=== PATIENT | male | born 1985 | race Caucasian/White ===

== ENCOUNTER 2023-08-25 18:17 | Emergency (ER) | payer OTHER ==
[~2023-08-25] VITALS: Ht 180.3 cm; Wt 70.5 kg
[2023-08-25 19:00] LABS: BASO # 0.1 10^3/uL (0.0-0.2); BASO % 1.1 % (0.0-1.0); EOS # 0.5 10^3/uL (0.0-0.5); HEMATOCRIT 39.3 % (42.0-52.0); HEMOGLOBIN 13.6 g/dl (13.5-17.5); LYMPH # 2.7 10^3/uL (1.5-5.0); LYMPH % 32.9 % (24.0-44.0); MEAN CORPUSCULAR HEMOGLOBIN 31.6 pg (27.0-33.0); MEAN CORPUSCULAR HGB CONC 34.6 g/dl (32.0-36.5); MEAN CORPUSCULAR VOLUME 91.4 fl (80.0-96.0); MONO # 0.8 10^3/uL (0.0-0.8); MONO % 9.1 % (2.0-8.0); NEUTROPHILS # 4.2 10^3/uL (1.5-8.5); NEUTROPHILS % 50.8 % (36.0-66.0); PLATELET COUNT, AUTOMATED 318 10^3/uL (150-450); WHITE BLOOD COUNT 8.3 10^3/uL (4.0-10.0)
[2023-08-25] MEDS ORDERED: Albuterol INH (19:15)
[2023-08-25 19:19] LABS: CK-MB VALUE MASS < 1.0 NG/ML (<3.6); LIPASE 49 U/L (12-53)
[2023-08-25 19:22] LABS: ALBUMIN 3.4 G/DL (3.2-5.2); ALKALINE PHOSPHATASE 63 U/L (46-116); ALT/SGPT 53 U/L (7.0-40); AST/SGOT 30 U/L (<34); BILIRUBIN,DIRECT < 0.1 MG/DL (<0.4); BILIRUBIN,TOTAL 0.3 MG/DL (0.3-1.2); BLOOD UREA NITROGEN 11 MG/DL (9-23); CALCIUM LEVEL 8.8 MG/DL (8.5-10.1); CARBON DIOXIDE LEVEL 27 MMOL/L (20-31); CHLORIDE LEVEL 108 MMOL/L (98-107); CPK CREATINE PHOSPHOKINASE 98 U/L (46-171); CREATININE FOR GFR 0.73 MG/DL (0.70-1.30); GLOMERULAR FILTRATION RATE > 60.0 (>60); GLUCOSE, FASTING 100 MG/DL (60-100); MB/CK RELATIVE INDEX 1.02 (< OR =4); POTASSIUM SERUM 3.8 MMOL/L (3.5-5.1); SODIUM LEVEL 143 MMOL/L (136-145); TOTAL PROTEIN 6.2 G/DL (5.7-8.2)
[2023-08-25 19:33] VITALS: TEMP 97.3
[2023-08-25 20:01] LABS: RSV AMPLIFICATION NEGATIVE (NEGATIVE)
[2023-08-25 21:18] LABS: CK-MB VALUE MASS 1.3 NG/ML (<3.6)
[2023-08-25 21:20] LABS: MB/CK RELATIVE INDEX 1.47 (< OR =4)
[2023-08-25 22:00] VITALS: BP 130/68
[2023-08-25 22:02] VITALS: O2SAT 98
== END 2023-08-25 22:34 | disposition home or self-care (01) ==
LOC: M ED 18:17
DX: R07.9 Chest pain, unspecified (principal); J45.909 Unspecified asthma, uncomplicated; F17.200 Nicotine dependence, unspecified, uncomplicated; Z79.52 Long term (current) use of systemic steroids; Z79.1 Long term (current) use of non-steroidal anti-inflammatories (NSAID); Z79.899 Other long term (current) drug therapy

== ENCOUNTER 2023-10-31 01:20 | Emergency (ER) | payer OTHER ==
[~2023-10-31] VITALS: Ht 195.6 cm; Wt 72.0 kg
[~2023-10-31 01:20] MED LIST: Albuterol INH
[2023-10-31 04:48] VITALS: BP 130/79; TEMP 97.8; O2SAT 100
[2023-10-31] MEDS ORDERED: LIDOCAINE 1% SDV 30ML VIAL SC SCH (07:45)
[2023-10-31] MEDS ORDERED: LIDOCAINE 1% MDV 20ML VIAL SC ONE (08:00)
[2023-10-31] MEDS ORDERED: NEOSPORIN OINT 0.9 GM PKT TOP ONE (09:00)
== END 2023-10-31 09:01 | disposition home or self-care (01) ==
LOC: M ED 01:20
DX: S61.511A Laceration without foreign body of right wrist, initial encounter (principal); W26.0XXA Contact with knife, initial encounter; Y92.009 Unspecified place in unspecified non-institutional (private) residence as the place of occurrence of the external cause; Y93.9 Activity, unspecified; Y99.9 Unspecified external cause status; F17.200 Nicotine dependence, unspecified, uncomplicated; Z88.6 Allergy status to analgesic agent; Z88.5 Allergy status to narcotic agent

== ENCOUNTER 2024-02-22 20:39 | Emergency (ER) | payer OTHER ==
[~2024-02-22] VITALS: Ht 167.6 cm; Wt 70.7 kg
[2024-02-22] MEDS: LIDOCAINE 1% MDV 20ML VIAL SC ONE (22:40)
[2024-02-22] MEDS ORDERED: CEPH500C PO (23:00)
[2024-02-22 23:08] VITALS: BP 124/73; TEMP 98; O2SAT 100
== END 2024-02-22 23:09 | disposition home or self-care (01) ==
LOC: M ED 20:39
DX: S61.210A Laceration without foreign body of right index finger without damage to nail, initial encounter (principal); W26.8XXA Contact with other sharp object(s), not elsewhere classified, initial encounter; Y92.009 Unspecified place in unspecified non-institutional (private) residence as the place of occurrence of the external cause; Y93.G1 Activity, food preparation and clean up; Y99.9 Unspecified external cause status; Z88.5 Allergy status to narcotic agent; Z88.6 Allergy status to analgesic agent; Z79.2 Long term (current) use of antibiotics; Z79.52 Long term (current) use of systemic steroids

== ENCOUNTER → 2024-07-13 | Outpatient (CLI) | payer OTHER ==
[~2024-07-13] MED LIST changes: +CEPH500C PO
== END ==
LOC: M RAD 13:11
PROVIDERS: ATTEND Physician Assistant Medical
DX: R05.9 Cough, unspecified (principal); R06.02 Shortness of breath

== ENCOUNTER 2024-08-04 01:45 | Emergency (ER) | payer MEDICAID, OTHER, SELFPAY ==
[~2024-08-04] VITALS: Ht 182.9 cm; Wt 66.2 kg
[2024-08-04 02:33] LABS: BASO # 0.1 10^3/uL (0.0-0.2); EOS # 0.5 10^3/uL (0.0-0.5); HEMATOCRIT 42.8 % (42.0-52.0); HEMOGLOBIN 14.7 g/dl (13.5-17.5); LYMPH # 1.9 10^3/uL (1.5-5.0); LYMPH % 18.6 % (24.0-44.0); MEAN CORPUSCULAR HGB CONC 34.3 g/dl (32.0-36.5); MONO # 0.7 10^3/uL (0.0-0.8); MONO % 6.2 % (2.0-8.0); NEUTROPHILS # 7.2 10^3/uL (1.5-8.5); PLATELET COUNT, AUTOMATED 256 10^3/uL (150-450); WHITE BLOOD COUNT 10.5 10^3/uL (4.0-10.0)
[2024-08-04 03:21] LABS: BLOOD UREA NITROGEN 16 MG/DL (9-23); CALCIUM LEVEL 8.8 MG/DL (8.5-10.1); CARBON DIOXIDE LEVEL 27 MMOL/L (20-31); CHLORIDE LEVEL 107 MMOL/L (98-107); CREATININE FOR GFR 0.89 MG/DL (0.70-1.30); GLOMERULAR FILTRATION RATE > 60.0 (>60); GLUCOSE, FASTING 182 MG/DL (60-100); MAGNESIUM LEVEL 2.2 MG/DL (1.8-2.4); POTASSIUM SERUM 3.4 MMOL/L (3.5-5.1); SODIUM LEVEL 139 MMOL/L (136-145)
[2024-08-04] MEDS: NS 1,000 ML IV ONE (06:33)
[2024-08-04] MEDS: ONDANSETRON 4MG 2ML VIAL IV ONE (06:34)
[2024-08-04] MEDS: NALOXONE 2MG/2ML SYRINGE IV STA (08:27)
[2024-08-04 09:48] LABS: BARBITURATES URINE NEGATIVE (NEGATIVE); BENZODIAZEPINES URINE NEGATIVE (NEGATIVE); CANNABINOIDS URINE NEGATIVE (NEGATIVE); METHADONE URINE NEGATIVE (NEGATIVE); OPIATES URINE NEGATIVE (NEGATIVE); PHENCYCLIDINE URINE NEGATIVE (NEGATIVE)
[2024-08-04 09:57] LABS: AMPHETAMINES LEVEL URINE POSITIVE (NEGATIVE); COCAINE METABOLITE URINE POSITIVE (NEGATIVE)
[2024-08-04] MEDS ORDERED: HOME MED LIST COMPLETE! XX SCH (10:35)
[2024-08-04 12:24] VITALS: BP 104/75; TEMP 96.4; O2SAT 98
== END 2024-08-04 12:47 | disposition home or self-care (01) ==
LOC: M ED 01:45
DX: F19.10 Other psychoactive substance abuse, uncomplicated (principal); Z88.5 Allergy status to narcotic agent; Z88.6 Allergy status to analgesic agent
CPT/HCPCS: 80048; 80307; 83735; 85025; 96361; 96374; 96375; 99285; J2310; J2405

== ENCOUNTER 2024-09-24 16:56 | Emergency (ER) | payer MEDICAID ==
[~2024-09-24] VITALS: Ht 182.9 cm; Wt 78.1 kg
[2024-09-24] MEDS ORDERED: BOOSTRIX VACCINE (TETANUS/DIPHTH/ACEL. PERTUSSIS) 0.5ML SYR IM.IMMUN ONE (17:15)
[2024-09-24] MEDS: MORPHINE 4 MG/ML 1ML VIAL IV PRN (17:18)
[2024-09-24] MEDS: ceFAZolin SOD 2 GM in IV 1 EA IV ONE (17:32)
[2024-09-24] MEDS: LIDOCAINE 2% MDV 20ML VIAL SC ONE (18:33)
[2024-09-24] MEDS ORDERED: PERC5TAB12 PO (19:28)
[2024-09-24] MEDS ORDERED: CEPH500C PO (19:28)
[2024-09-24 19:30] VITALS: BP 116/64
[2024-09-24 19:31] VITALS: O2SAT 97
[2024-09-24 19:39] VITALS: TEMP 97.3
[2024-09-24] MEDS: OXYCODONE/APAP 5MG/325MG(HOME DOSE PACK) PO ONE (19:43)
== END 2024-09-24 19:49 | disposition home or self-care (01) ==
LOC: M ED 16:56
DX: S61.212A Laceration without foreign body of right middle finger without damage to nail, initial encounter (principal); S62.632B Displaced fracture of distal phalanx of right middle finger, initial encounter for open fracture; W29.3XXA Contact with powered garden and outdoor hand tools and machinery, initial encounter; J45.909 Unspecified asthma, uncomplicated; Z88.6 Allergy status to analgesic agent; Z88.8 Allergy status to other drugs, medicaments and biological substances; Z79.2 Long term (current) use of antibiotics; Z79.899 Other long term (current) drug therapy; Y92.009 Unspecified place in unspecified non-institutional (private) residence as the place of occurrence of the external cause; Y93.89 Activity, other specified; Y99.9 Unspecified external cause status
CPT/HCPCS: 12032; 73130; 96374; 96375; 96376; 99284; J0690

== ENCOUNTER 2025-05-21 01:28 | Emergency (ER) | payer OTHER ==
[~2025-05-21] VITALS: Ht 182.9 cm; Wt 78.0 kg
[~2025-05-21 01:28] MED LIST changes: +PERC5TAB12 PO
[2025-05-21 02:09] LABS: PLATELET COUNT, AUTOMATED 294 10^3/uL (150-450)
[2025-05-21 02:36] LABS: ETHYL ALCOHOL (ETHANOL) 0.007 % (0.000-0.010)
[2025-05-21 02:38] LABS: ALT/SGPT 20 U/L (7.0-40); AST/SGOT 23 U/L (<34); CALCIUM LEVEL 8.9 MG/DL (8.5-10.1); CARBON DIOXIDE LEVEL 23 MMOL/L (20-31); CHLORIDE LEVEL 103 MMOL/L (98-107); CREATININE FOR GFR 0.93 MG/DL (0.70-1.30); GLOMERULAR FILTRATION RATE > 90.0 (>60); POTASSIUM SERUM 4.0 MMOL/L (3.5-5.1); SALICYLATE LEVEL < 3.0 MG/DL (<30); SODIUM LEVEL 138 MMOL/L (136-145)
[2025-05-21 03:19] LABS: METHADONE URINE NEGATIVE (NEGATIVE)
[2025-05-21 03:20] LABS: BARBITURATES URINE NEGATIVE (NEGATIVE); BENZODIAZEPINES URINE NEGATIVE (NEGATIVE); OPIATES URINE NEGATIVE (NEGATIVE); PHENCYCLIDINE URINE NEGATIVE (NEGATIVE)
[2025-05-21 03:22] LABS: AMPHETAMINES LEVEL URINE POSITIVE (NEGATIVE); CANNABINOIDS URINE POSITIVE (NEGATIVE); COCAINE METABOLITE URINE POSITIVE (NEGATIVE)
[2025-05-21] MEDS ORDERED: ALBU8.5H INH (05:43)
[2025-05-21] MEDS ORDERED: HOME MED LIST COMPLETE! XX SCH (05:45)
[2025-05-21] MEDS ORDERED: OVERDOSE RESCUE KIT XX SCH (11:15)
[2025-05-21 11:23] VITALS: BP 126/66; TEMP 97.9; O2SAT 99
== END 2025-05-21 11:39 | disposition home or self-care (01) ==
LOC: M ED 01:28
DX: F19.14 Other psychoactive substance abuse with psychoactive substance-induced mood disorder (principal); F32.A Depression, unspecified; Z88.6 Allergy status to analgesic agent; Z88.5 Allergy status to narcotic agent; Z79.52 Long term (current) use of systemic steroids

== ENCOUNTER 2025-08-27 07:28 | Emergency (ER) | payer OTHER, SELFPAY ==
[~2025-08-27] VITALS: Ht 182.9 cm; Wt 79.7 kg
[~2025-08-27 07:28] MED LIST changes: +ALBU8.5H INH
[2025-08-27 09:25] LABS: BASO # 0.1 10^3/uL (0.0-0.2); BASO % 0.8 % (0.0-1.0); EOS # 0.4 10^3/uL (0.0-0.5); EOS % 2.1 % (0.0-3.0); LYMPH # 2.0 10^3/uL (1.5-5.0); LYMPH % 10.5 % (24.0-44.0); MONO # 1.0 10^3/uL (0.0-0.8); MONO % 5.3 % (2.0-8.0); NEUTROPHILS # 15.1 10^3/uL (1.5-8.5); NEUTROPHILS % 80.9 % (36.0-66.0); PLATELET COUNT, AUTOMATED 394 10^3/uL (150-450)
[2025-08-27] MEDS: KETOROLAC 30 MG/ML 1 ML VIAL IV ONE (09:30)
[2025-08-27] MEDS: cefTRIAXone SOD 1 GM in DEXTROSE 5% (D5W) ADV/MINI-BAG 50 ML IV ONE (09:31)
[2025-08-27 09:48] LABS: ALT/SGPT 21 U/L (7.0-40); AST/SGOT 26 U/L (<34); C REACTIVE PROTEIN QUANTITATIV 1.73 MG/DL (<1.0); CALCIUM LEVEL 9.4 MG/DL (8.5-10.1); CARBON DIOXIDE LEVEL 25 MMOL/L (20-31); CHLORIDE LEVEL 105 MMOL/L (98-107); CREATININE FOR GFR 0.80 MG/DL (0.70-1.30); GLOMERULAR FILTRATION RATE > 90.0 (>60); POTASSIUM SERUM 4.1 MMOL/L (3.5-5.1); SODIUM LEVEL 142 MMOL/L (136-145)
[2025-08-27] MEDS: NS (Normal Saline) 0.9% 2,390 ML in IV 1 EA IV STA (10:10)
[2025-08-27] MEDS: VANCOMYCIN HCL 1,500 MG, VIAL MATE ADAPTER 1 EACH in NS 500 ML IV ONE (10:22)
[2025-08-27] MEDS ORDERED: HOME MED LIST COMPLETE! XX SCH (10:45)
[2025-08-27] MEDS: LIDOCAINE 1% MDV 20 ML VIAL SC ONE (11:45)
[2025-08-27] MEDS ORDERED: BACT800T5 PO (13:08)
[2025-08-27] MEDS ORDERED: IBUP80TA PO (13:44)
[2025-08-27 14:07] VITALS: BP 126/67; TEMP 98.2; O2SAT 99
[2025-08-29] MEDS ORDERED: DOXY-442 PO (07:13)
== END 2025-08-27 14:10 | disposition home or self-care (01) ==
LOC: M ED 07:28
DX: L03.114 Cellulitis of left upper limb (principal); L02.512 Cutaneous abscess of left hand; J45.909 Unspecified asthma, uncomplicated; F17.200 Nicotine dependence, unspecified, uncomplicated; Z79.52 Long term (current) use of systemic steroids; Z79.2 Long term (current) use of antibiotics; Z79.899 Other long term (current) drug therapy
CPT/HCPCS: 73130; 80053; 83605; 85025; 85652; 86140; 87040; 87070; 87075; 87077; 87186; 87205; 96365; 96366; 96375; 99284; J0665; J0696; J1885; J3374

== ENCOUNTER 2025-09-02 23:24 | Inpatient (IN) | payer OTHER ==
[~2025-09-02] VITALS: Ht 182.9 cm; Wt 87.8 kg
[~2025-09-02 23:24] MED LIST changes: +BACT800T5 PO; +DOXY-442 PO; +IBUP80TA PO
[2025-09-03 07:42] LABS: BASO # 0.1 10^3/uL (0.0-0.2); BASO % 0.8 % (0.0-1.0); EOS # 0.3 10^3/uL (0.0-0.5); EOS % 2.3 % (0.0-3.0); LYMPH # 2.1 10^3/uL (1.5-5.0); LYMPH % 17.2 % (24.0-44.0); MONO # 1.1 10^3/uL (0.0-0.8); MONO % 9.4 % (2.0-8.0); NEUTROPHILS # 8.4 10^3/uL (1.5-8.5); NEUTROPHILS % 69.5 % (36.0-66.0); PLATELET COUNT, AUTOMATED 409 10^3/uL (150-450)
[2025-09-03] MEDS: KETOROLAC 30 MG/ML 1 ML VIAL IV ONE (07:48)
[2025-09-03] MEDS: NS (Normal Saline) 0.9% 1,000 ML IV ONE (07:48)
[2025-09-03] MEDS: cefTRIAXone SOD 1 GM in DEXTROSE 5% (D5W) ADV/MINI-BAG 50 ML IV ONE (07:49)
[2025-09-03 08:10] LABS: CK-MB VALUE MASS 1.0 NG/ML (<3.6)
[2025-09-03 08:12] LABS: C REACTIVE PROTEIN QUANTITATIV 7.30 MG/DL (<1.0); CPK CREATINE PHOSPHOKINASE 69 U/L (46-171); MB/CK RELATIVE INDEX 1.44 (< OR =4)
[2025-09-03 08:13] LABS: ALT/SGPT 30 U/L (7.0-40); AST/SGOT 25 U/L (<34); CALCIUM LEVEL 9.5 MG/DL (8.5-10.1); CARBON DIOXIDE LEVEL 30 MMOL/L (20-31); CHLORIDE LEVEL 101 MMOL/L (98-107); CREATININE FOR GFR 0.76 MG/DL (0.70-1.30); GLOMERULAR FILTRATION RATE > 90.0 (>60); POTASSIUM SERUM 4.0 MMOL/L (3.5-5.1); SODIUM LEVEL 143 MMOL/L (136-145)
[2025-09-03] MEDS: VANCOMYCIN HCL 1,750 MG, VIAL MATE ADAPTER 1 EACH in NS 500 ML IV ONE (08:17)
[2025-09-03] MEDS ORDERED: HOME MED LIST COMPLETE! XX SCH (11:00)
[2025-09-03 11:10] LABS: BARBITURATES URINE NEGATIVE (NEGATIVE); BENZODIAZEPINES URINE NEGATIVE (NEGATIVE); CANNABINOIDS URINE NEGATIVE (NEGATIVE); METHADONE URINE NEGATIVE (NEGATIVE); OPIATES URINE NEGATIVE (NEGATIVE); PHENCYCLIDINE URINE NEGATIVE (NEGATIVE)
[2025-09-03 11:12] LABS: AMPHETAMINES LEVEL URINE POSITIVE (NEGATIVE); COCAINE METABOLITE URINE POSITIVE (NEGATIVE)
[2025-09-03 11:21] LABS: KETONE, URINE AUTO RFX NEGATIVE (NEGATIVE); LEUKOCYTE ESTERASE UR AUTO RFX NEGATIVE (NEGATIVE); MUCUS, URINE RFX SMALL (NEGATIVE); NITRITE, URINE AUTO RFX NEGATIVE (NEGATIVE); RBC, URINE AUTO RFX 1 /HPF (0-3); SQUAM EPITHELIAL CELL UR AURFX 0 /HPF (0-6); WBC, URINE AUTO RFX 3 /HPF (0-3)
[2025-09-03] MEDS ORDERED: KETOROLAC 30 MG/ML 1 ML VIAL IV PRN (12:45)
[2025-09-03] MEDS ORDERED: ACETAMINOPHEN 325 MG TAB PO PRN (12:45)
[2025-09-03] MEDS ORDERED: VANCOMYCIN HCL 1,000 MG in IV FLUID PLACE HOLDER 1 EA IV SCH (12:50)
[2025-09-03 14:29] VITALS: BP 123/74; TEMP 98.8; O2SAT 98
[2025-09-03] MEDS: VANCOMYCIN HCL 1,000 MG, VIAL MATE ADAPTER 1 EACH in NS 250 ML IV SCH (15:15)
[2025-09-03] MEDS: IBUPROFEN 800 MG TAB PO PRN (16:00)
[2025-09-03 20:11] VITALS: BP 135/70; TEMP 98; O2SAT 98
[2025-09-03] MEDS: DOCUSATE SODIUM 100 MG CAPSULE PO SCH (21:00)
[2025-09-03] MEDS: KETOROLAC 30 MG/ML 1 ML VIAL IV PRN (22:47)
[2025-09-04 06:40] LABS: BASO # 0.1 10^3/uL (0.0-0.2); BASO % 1.0 % (0.0-1.0); EOS # 0.4 10^3/uL (0.0-0.5); EOS % 4.0 % (0.0-3.0); LYMPH # 2.2 10^3/uL (1.5-5.0); LYMPH % 21.0 % (24.0-44.0); MONO # 0.9 10^3/uL (0.0-0.8); MONO % 9.2 % (2.0-8.0); NEUTROPHILS # 6.5 10^3/uL (1.5-8.5); NEUTROPHILS % 63.6 % (36.0-66.0); PLATELET COUNT, AUTOMATED 413 10^3/uL (150-450)
[2025-09-04 06:47] VITALS: BP 124/74; TEMP 98.6; O2SAT 97
[2025-09-04 07:03] LABS: CALCIUM LEVEL 8.5 MG/DL (8.5-10.1); CARBON DIOXIDE LEVEL 29 MMOL/L (20-31); CHLORIDE LEVEL 106 MMOL/L (98-107); CREATININE FOR GFR 0.98 MG/DL (0.70-1.30); GLOMERULAR FILTRATION RATE > 90.0 (>60); POTASSIUM SERUM 4.8 MMOL/L (3.5-5.1); SODIUM LEVEL 145 MMOL/L (136-145)
[2025-09-04] MEDS: cefTRIAXone SOD 1 GM in DEXTROSE 5% (D5W) ADV/MINI-BAG 50 ML IV SCH (09:58)
[2025-09-04] MEDS: ENOXAPARIN 40 MG/0.4 ML SYRINGE (J1650 PER 10MG) SC SCH (10:01)
[2025-09-04 10:30] VITALS: BP 130/62; TEMP 98.2; O2SAT 97
[2025-09-04] MEDS ORDERED: ALBUTEROL 90 MCG/ACT 8 GM HFA INHALER INH PRN (11:10)
[2025-09-04] MEDS ORDERED: GI COCKTAIL 50 ML BTL(HYOSCYAMINE/MAALOX/LIDOCAINE VISCOUS)(1:3:1) PO ONE (11:10)
[2025-09-04] MEDS: PANTOPRAZOLE 40MG VIAL IV ONE (11:30)
[2025-09-04] MEDS: ALBUTEROL SULFATE 2.5 MG/0.5 ML INH CONCENTRATE NEB SOLN NEB ONE (11:35)
[2025-09-04 14:40] VITALS: BP 137/83; TEMP 98.1; O2SAT 100
[2025-09-04 19:56] VITALS: BP 133/77; TEMP 98.6; O2SAT 100
[2025-09-04] MEDS: FAMOTIDINE 20 MG TAB PO SCH (21:00)
[2025-09-05 04:59] VITALS: BP 131/82; TEMP 99; O2SAT 100
[2025-09-05 06:41] LABS: BASO # 0.1 10^3/uL (0.0-0.2); BASO % 0.9 % (0.0-1.0); EOS # 0.4 10^3/uL (0.0-0.5); EOS % 2.9 % (0.0-3.0); LYMPH # 2.3 10^3/uL (1.5-5.0); LYMPH % 19.5 % (24.0-44.0); MONO # 0.8 10^3/uL (0.0-0.8); MONO % 6.9 % (2.0-8.0); NEUTROPHILS # 8.2 10^3/uL (1.5-8.5); NEUTROPHILS % 68.4 % (36.0-66.0); PLATELET COUNT, AUTOMATED 420 10^3/uL (150-450)
[2025-09-05 07:00] LABS: CALCIUM LEVEL 8.4 MG/DL (8.5-10.1); CARBON DIOXIDE LEVEL 29 MMOL/L (20-31); CHLORIDE LEVEL 103 MMOL/L (98-107); CREATININE FOR GFR 0.73 MG/DL (0.70-1.30); GLOMERULAR FILTRATION RATE > 90.0 (>60); POTASSIUM SERUM 4.4 MMOL/L (3.5-5.1); SODIUM LEVEL 140 MMOL/L (136-145)
[2025-09-05] MEDS: VANCOMYCIN HCL 1,250 MG, VIAL MATE ADAPTER 1 EACH in NS 250 ML IV SCH (08:56)
[2025-09-05] MEDS ORDERED: DOXY100C3 PO (11:01)
[2025-09-05] MEDS ORDERED: CEFD300CAP PO (11:01)
[2025-09-05] MEDS ORDERED: PROBCAP14 PO (11:01)
[2025-09-05 11:08] VITALS: BP 131/82
[2025-09-05] MEDS: FUROSEMIDE 40 MG/4 ML VIAL IV ONE (11:08)
[2025-09-05 11:12] LABS: C REACTIVE PROTEIN QUANTITATIV 2.75 MG/DL (<1.0)
[2025-09-05] MEDS ORDERED: IBUP600T42 PO (11:17)
[2025-09-05] MEDS ORDERED: ACET-897 PO (11:17)
[2025-09-05] MEDS: DOXYCYCLINE HYCLATE 100 MG TABLET PO SCH (11:31)
[2025-09-05] MEDS: CEFDINIR 300 MG CAP PO SCH (11:31)
== END 2025-09-05 12:15 | disposition home or self-care (01) | DRG 383 ==
LOC: M ED 23:24 → M ED INP 09-03 12:42 → M MS5PR 09-03 13:50
PROVIDERS: ADMIT Internal Medicine Nephrology; ATTEND Internal Medicine Nephrology
DX: L03.115 Cellulitis of right lower limb (principal); L03.116 Cellulitis of left lower limb; Z59.00 Homelessness unspecified; Z88.5 Allergy status to narcotic agent; Z88.8 Allergy status to other drugs, medicaments and biological substances; F14.90 Cocaine use, unspecified, uncomplicated; F15.90 Other stimulant use, unspecified, uncomplicated; F12.90 Cannabis use, unspecified, uncomplicated; J45.909 Unspecified asthma, uncomplicated; F17.200 Nicotine dependence, unspecified, uncomplicated; L03.011 Cellulitis of right finger